=== PATIENT | female | born 1980 | race Caucasian/White ===

== ENCOUNTER → 2022-07-08 12:29 | Outpatient (CLI) | payer BC, SELFPAY ==
--- NOTE | ~2022-07-08 | MR_ITS ---
MRI of the cervical spine Clinical History: Radiculopathy Technique: Axial T2-weighted and gradient images, and sagittal T1-weighted, T2-weighted, and STIR vanessa ges were acquired. Findings: There is straightening of normal cervical lordosis. No fracture or subluxation seen. No judith picious bone marrow signal abnormality seen. At C2-C3, there is no disc bulge or herniation. No spinal canal stenosis, cord compression, or neural foraminal narrowing. At C3-C4, there is minimal disc osteophyte convex. No spinal canal stenosis, cord compression, or glenn ral foraminal narrowing. At C4-C5, there is minimal disc osteophyte complex. No luis spinal canal stenosis, cord compression, or neural foraminal narrowing. At C5-C6, there is mild disc osteophyte complex, with probable superimposed focal disc extrusion at t he left paracentral region, which mildly effaces the ventral thecal sac. There is mild flattening of the ventral cord, especially on the left side. Bilateral neural foramina are preserved. At C6-C7, there is no disc bulge or herniation. No spinal canal stenosis, cord compression, or neural foraminal narrowing. No abnormal signal seen in the spinal cord. Paravertebral soft tissues are unremarkable. Impression: Probable focal left paracentral disc extrusion at the C5-C6 level, with mild flattening of the ventra l cord, especially on the left side. Please see details above. Reviewed, dictated and finalized at [facility] [place]. OYMENT MANAGER Impression: Probable focal left paracentral disc extrusion at the C5-C6 level, with mild fl attening of the ventral cord, especially on the left side. Please see details yuliana ortez.
== END ==
PROVIDERS: PCP Family Medicine; Visit Provider Physician Assistant
DX: M54.12 Radiculopathy, cervical region (principal); M50.222 Other cervical disc displacement at C5-C6 level
CPT/HCPCS: 72141